=== PATIENT | male | born 1975 | race Caucasian/White ===

== ENCOUNTER 2023-04-17 08:10 | Emergency (ER) | payer OTHER, SELFPAY ==
[2023-04-17 08:52] VITALS: BP 158/104; PULSE 78; RESP 17; TEMP 36.8; O2SAT 98; BMI 39.0
--- NOTE | 2023-04-17 09:25 | ED_ITS ---
HPI - General Adult General: Chief complaint: General Medical Stated complaint: reported knot with rediating pain down leg Time Seen by Provider: 04/17/23 08:14 Course Vital Signs: Vital signs: Vital Signs Temperature 98.3 F 04/17/23 08:52 Pulse Rate 78 04/17/23 08:52 Respiratory Rate 17 04/17/23 08:52 Blood Pressure 158/104 04/17/23 08:52 Pulse Oximetry 98 04/17/23 08:52 Oxygen Delivery Me thod Room Air 04/17/23 08:52 Discharge Plan Discharge Condition: Stable Coding Level of Care Code ED Plastic Straightening Roll Operator for Mandi Hoffmann
--- NOTE | 2023-04-17 09:31 | USR_ITS ---
PROCEDURE INFORMATION: Exam: US Duplex Left Lower Extremity Veins, Limited Exam date and time: 04/17/2023 10:20 AM Age: 48 years old Clinical indication: Pain; Leg, upper; Left; Additional info: Palpable knot/cord L anterior proximal thigh TECHNIQUE: Imaging protocol: Real-time duplex ultrasound of the left extremity with 2-D dupree scale, color Doppler flow and spectral waveform analysis including responses to compression and other maneuvers (when performed) with image documentation. Limited exam focused on the left lower extremity veins. COMPARISON: No relevant prior studies available. FINDINGS: Left deep veins: The common femoral, femoral, proximal profunda femoral and popliteal veins are patent without thrombus. Normal Doppler waveforms. Normal compressibility and/or augmentation response. Superficial veins: Saphenofemoral junction is patent without thrombus. No clear evidence of superficial thrombophlebitis. Soft tissues: Subcutaneous edema. US/CV venous duplex [facility] [id number] IMPRESSION: No evidence of deep vein thrombosis.
--- NOTE | 2023-04-17 09:32 | ED_ITS ---
HPI - Extremity Problem General: Chief complaint: General Medical Stated complaint: reported knot with rediating pain down leg Time Seen by Provider: 04/17/23 08:14 Source: patient Mode of arrival: ambulatory Limitations: no limitations History of Present Illness: Patient is a nice 48-year-old male who presents to ED today with complaint of a knot near his left groin that seems to be spreading distally. Patient states a few days ago he noticed what felt like an ingrown hair or pimple. He states he never visualized a pimple or folliculitis like lesion. He states since then the feeling has seemed to spread distally and he has began noticing redness/warmth throughout his left anterior thigh. Denies recent trauma/injury/groin puncture/recent surgery. MD Complaint: extremity pain Onset (ago): day(s) Pain Consistency: constant Location: left and lower extremity Radiation: none Relieving factors: nothing Exacerbating factors: nothing Associated symptoms: Reports no associated symptoms; Deny chest pain or fever(s) Review of Systems Const: Denies: fever(s), chills, body aches, fatigue or malaise Card: Denies: chest pain Resp: Denies: dyspnea GI: Denies: abdominal pain, nausea or vomiting Musc: Reports: extremity pain; Denies: neck pain, back pain, extremity swelling, joint pain, joint swelling, joint redness, joint warmth or limited range of motion Neuro: Denies: headache(s), numbness in extremities, weakness in extremities or sensory changes Physical Exam Const: COMMON NORMALS: no acute distress, patient oriented x3, no limitations, healthy appearing, alert and well nourished Resp: COMMON NORMALS: normal respiratory effort and clear to auscultation bilaterally AUSCULTATION: clear to auscultation bilaterally Cardio: COMMON NORMALS: regular rate and regular rhythm RATE: regular rate RHYTHM: regular rhythm Extremity: COMMON NORMALS: full ROM, capillary refill normal, no joint enlar gement, no clubbing, cyanosis or edema, no calf tenderness and no pedal edema NARRATIVE EXTREMITY EXAM: DP/PT pulses easily found to bilateral LEs; cap refill and sensation normal GENERAL: Yes normal exam except as noted LEFT LOWER EXTREMITY: Yes upper leg OTHER: pt has a palpable/edematous area to his L anterior proximal thigh starting close to inguinal crease and extending distally; he has erythema/warmth affecting anterior thigh EXTREMITY IMAGE (FRONT): 1. palpable/firm tender area 2. surrounding erythema Neuro: COMMON NORMALS: patient oriented x3, moves all extremities, no focal motor deficits and no sensory deficits noted SENSORIUM/ORIENTATION: Yes alert Course Vital Signs: Vital signs: Vital Signs Temperature 98.3 F 04/17/23 08:52 Pulse Rate 78 04/17/23 08:52 Respiratory Rate 17 04/17/23 08:52 Blood Pressure 158/104 04/17/23 08:52 Pulse Oximetry 98 04/17/23 08:52 Oxygen Delivery Me thod Room Air 04/17/23 08:52 MDM - Extremity (Nontraumatic) Medical Decision Making DDx including DVT, acute superficial thrombophlebitis including suppurative/s eptic thrombophelebitis given redness, abscess, and cellulitis. US of extremity reveals no DVT, no superficial thrombus, no underlying fluid collection or abscess. Edema noted at palpable area. Patient is not tachycardic or febrile. He has a normal white count. CRP scantly elevated at 5.6. He will be treated with IV vanc and given PO abx for treatment of a cellulitis/possible early abscess formation. He is traveling home to [place] tomorrow. Recommend follow up in 1-2 days and sooner if symptoms progressively worsen. Lab Data 04/17/23 10:10 04/17/23 10:10 Radiology Impressions Venous Duplex 04/17/23 09:31 IMPRESSION: No evidence of deep vein thrombosis. Laboratory Results WBC 7.86 10^3/uL (3.29-11.43) 04/17/23 10:10 RBC 4.80 10^6/uL (3.85-5.65) 04/17/23 10:10 Hgb 16.00 g/dL (11.27-16.99) 04/17/23 10:10 Hct 47.5 % (37-53) 04/17/23 10:10 MCV 99.0 fl (82-101) 04/17/23 10:10 MCH 33.3 pg (27-33) H 04/17/23 10:10 MCHC 33.7 g/dL (30-55) 04/17/23 10:10 RDW 13.3 % (12.1-15.1) 04/17/23 10:10 Plt Count 214 10^3/cmm (157-399) 04/17/23 10:10 MPV 12.1 fL (7.4-10.4) H 04/17/23 10:10 Neut % (Auto) 65.3 % 04/17/23 10:10 Lymph % (Auto) 27.6 % 04/17/23 10:10 [place] % (Auto) 5.6 % 04/17/23 10:10 Eos % (Auto) 1.1 % 04/17/23 10:10 Baso % (Auto) 0.3 % 04/17/23 10:10 Neut # (Auto) 5.13 10^3/uL (1.8-7.7) 04/17/23 10:10 Lymph # (Auto) 2.2 10^3/uL (0.8-4.8) 04/17/23 10:10 [place] # (Auto) 0.4 10^3/uL (0.2-0.9) 04/17/23 10:10 Eos # (Auto) 0.1 10^3/uL (0.0-0.8) 04/17/23 10:10 Baso # (Auto) 0.0 10^3/uL (0.0-0.1) 04/17/23 10:10 Nucleated RBC % (auto) 0 % 04/17/23 10:10 Nucleated RBCs # 0.0 /100WBC 04/17/23 10:10 Sodium 137 mmol/L (136-145) 04/17/23 10:10 Potassium 4.2 mmol/L (3.5-5.1) 04/17/23 10:10 Chloride 104 mmol/L (98-107) 04/17/23 10:10 Carbon Dioxide 24 mmol/L (22-29) 04/17/23 10:10 Anion Gap 13.2 (5-19) 04/17/23 10:10 BUN 10 mg/dL (6-20) 04/17/23 10:10 Creatinine 0.6 mg/dL (0.7-1.2) L 04/17/23 10:10 GFR Calculation 145.0 mL/min (90-130) H 04/17/23 10:10 Glucose 89 mg/dL (65-115) 04/17/23 10:10 Calculated Osmolality 283 mOsm/kg (285-295) L 04/17/23 10:10 Calcium 9.2 mg/dL (8.5-10.5) 04/17/23 10:10 Total Bilirubin 1.2 mg/dL (0.15-1.2) 04/17/23 10:10 AST 18 U/L (0-40) 04/17/23 10:10 ALT 29 U/L (0-41) 04/17/23 10:10 Alkaline Phosphatase 96 U/L (40-130) 04/17/23 10:10 C-Reactive Protein 5.6 mg/L (0.0-4.9) H 04/17/23 10:10 Total Protein 7.5 g/dL (6.6-8.7) 04/17/23 10:10 Albumin 4.2 g/dL (3.5-5.2) 04/17/23 10:10 Globulin 3.3 g/dL (1.3-4.6) 04/17/23 10:10 All radiology interpretation(s) finalized by discharge Discharge Plan Discharge Patient Disposition: Home Clinical Impression: Cellulitis of left thigh Condition: Stable Prescriptions: New clindamycin HCl 300 mg capsule 300 mg PO Q6H 7 Days Qty: 28 0RF Discharge Orders: Discharge ED (Routine); Ordered 04/17/23 Ordered By: Mamie Xie Activity Restrictions/Additional Instructions: As we discussed begin your antibiotics immediately. You need to follow-up with your primary care provider as soon as possible when you return home. You need sooner follow-up if redness continues to spread, firm area in your groin continues to worsen, you begin running fevers, generally feeling worse or unwell, or any other concerns you may have. I hope you begin to feel better soon. Coding Level of Care Code ED Exhaust Emissions Inspector for Mandi Hoffmann
--- NOTE | 2023-04-17 10:18 | PC.PHAR ---
PT IS FROM [place]. [address]
[2023-04-17 10:30] LABS: Basophils % 0.3 %; Eosinophils # 0.1 10^3/uL (0.0-0.8); Eosinophils % 1.1 %; Hematocrit 47.5 % (37-53); Lymphocytes # 2.2 10^3/uL (0.8-4.8); Lymphocytes % 27.6 %; Mean Corpuscular HGB Conc 33.7 g/dL (30-55); Mean Corpuscular Hemoglobin 33.3 pg (27-33); Mean Platelet Volume 12.1 fL (7.4-10.4); Monocytes # 0.4 10^3/uL (0.2-0.9); Monocytes % 5.6 %; Neutrophils # 5.13 10^3/uL (1.8-7.7); Neutrophils % 65.3 %; Nucleated Red Blood Cells % 0 %; Platelet Count 214 10^3/cmm (157-399); Red Cell Distribution Width 13.3 % (12.1-15.1); White Blood Count 7.86 10^3/uL (3.29-11.43)
[2023-04-17 10:48] LABS: Alanine Aminotransferase 29 U/L (0-41); Albumin Level 4.2 g/dL (3.5-5.2); Alkaline Phosphatase 96 U/L (40-130); Anion Gap 13.2 (5-19); Aspartate Amino Transferase 18 U/L (0-40); Blood Urea Nitrogen 10 mg/dL (6-20); C Reactive Protein 5.6 mg/L (0.0-4.9); Calcium 9.2 mg/dL (8.5-10.5); Carbon Dioxide 24 mmol/L (22-29); Chloride 104 mmol/L (98-107); Globulin 3.3 g/dL (1.3-4.6); Glucose 89 mg/dL (65-115); Osmolality Calculated 283 mOsm/kg (285-295); Potassium 4.2 mmol/L (3.5-5.1); Sodium 137 mmol/L (136-145); Total Bilirubin 1.2 mg/dL (0.15-1.2); Total Protein 7.5 g/dL (6.6-8.7)
== END 2023-04-17 12:20 | disposition home or self-care (01) ==
PROVIDERS: Emergency Provider Physician Assistant
DX: L03.116 Cellulitis of left lower limb (principal); M79.605 Pain in left leg
CPT/HCPCS: 36415; 80053; 85025; 86140; 87040; 93971; 99284